=== PATIENT | female | born 1985 | race Two or more races ===

== ENCOUNTER 2017-05-14 11:00 | Inpatient (IN) | payer MEDICAID ==
[~2017-05-14] VITALS: Ht 162.6 cm; Wt 110.0 kg
--- NOTE | ~2017-05-14 | OR ---
PATIENT'S NAME: [facility] AGE: 32 Y [address] 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 PROCEDURES: 1. Anterior approach for anterior lumbar arthrodesis. 2. Anterior diskectomy. 3. Anterior removal of prior posteriorly placed Interbody Spacer. 4. Placement of PEEK interbody cage, L5-S1. 5. Anterior instrumentation, L5-S1. 6. Intraoperative fluoroscopy, physician interpretation of film. 7. Placement of Cadaveric allograft. 8. Utilization of bone morphogenetic protein utilizing the small sample size for promotion of arthrodesis. CO-SURGEON: Dr. Fabien Levy. Please see Dr. Levy's dictation for the approach and closure. I assisted him on performing suction and retraction during closure. Dr. Levy assisted during my portion of the procedure with suction and retraction during the arthrodesis. INDICATION: This is a very pleasant woman of prior transforaminal lumbar interbody fusion few years ago. She has done fairly well and then re-presented with worsening back pain with fractured screws that we will replace with the posterior revision. I was unable at that time to remove the prior cage and revise the attempted arthrodesis with interbody space and decision was made for return to OR for anterior lumbar interbody fusion as staged procedure. We discussed the risks, benefits, and alternatives of the surgery included but not limited to MT, DVT, PE, pneumonia, , loss of bowel or bladder, sexual function, pseudoarthrosis, CSF leak, neurological injury, paralysis of lower extremity, specific risks with bone morphogenetic protein use including cancer, bony hypertrophic ossification, as well as others. I believe, she has also family was present in the preoperative suite, understand the risk, PATIENT'S NAME: [facility] AGE: 32 Y [address] ROOM: [id number] [place], [place] [address] LOCATION: [facility] [place] DATE: 05/16/2017 OR/Procedure Report DISCHARGE DATE: 05/18/2017 FAMILY PHYSICIAN: Swapnil Sweeney MD ATTENDING PHYSICIAN: ANDREA NOLEN, and alternatives. I fully answered any of there questions and believe that they understand the procedure. DESCRIPTION OF PROCEDURE: After getting informed consent, the patient was taken to operating theater placed under general endotracheal anesthesia in supine position with a probe placed underneath her back for positioning. Time- out was utilized to ascertain the correct site and side of surgery, as well as other pertinent patient's surgical information. Counts were obtained beginning and at the end of the case with no change between the two. Antibiotics were given within 1 hour of incision. The fluoroscope was brought into the field. Initial radiography was obtained and the approach was performed by Dr. Levy. During the retroperitoneal approach, I assisted in retraction and suction, while Dr. Levy performed an excellent approach and exposure of the anterior spinal column at lumbar 5 and sacral 1. Once this portion of the procedure was completed, I turned to the neurosurgical portion of the case, at which time, Dr. Levy converted to assisting me in this portion of the case with suction and retraction during the procedure. I incised the anterior longitudnal ligament L5-S1. There was soft disk material and ligaments still present. This was resected and then some abnormal non-cancelous appearing bone and cartilaginous appearing bone was present between the areas. This was drilled down and curetted back and resecting back discerning the anterior interbody graft which was subsided a bit into lumbar 5 vertebral body. I had to drill off and remove some of the inferior portion of the L5 vertebral body. The angle of this approach was caudal to cephalad in a fairly high angle. Drilling this back, I was able to get back to the graft sheaths which was embedded in poorly structured bone and fairly loose, although I did have to drill around it in able to adequately remove as much of it as was possible. Once I was able to effectively get around this, I was able to use the curette and then large pituitary rongeur and removed it from the interbody space. At this point the rest of the pseudo-arthritic appearing poor quality tissue and bone was drilled back posteriorly leaving a small posterior wall of the sacrum present. Scar tissue was encountered at the posterior aspect of the disk space. This was all drilled back to bone, resecting a portion of the superior aspect of sacral 1. Once this was completed it appeared that there would be good and acceptable bone for future arthrodesis. There was no sign of need of decompression as the posterior approach had adequately decompressed everything and there was significant scar tissue anterior to the thecal sac/behind the prior implants and this was resected as much as possible without a chance to completely resect secondary to concern for CSF leak due to the scar tissue. This case was substantially more difficult and otherwise the undertaking because of the tenacity of the tissues that had to be resected as well as the patient's anatomy making the PATIENT'S NAME: [facility] SUMMERS [facility] AGE: 32 Y [address] ROOM: [place] [address] LOCATION: [facility] [place] DATE: 05/16/2017 OR/Procedure Report DISCHARGE DATE: 05/18/2017 FAMILY PHYSICIAN: Swapnil Sweeney MD ATTENDING PHYSICIAN: ANDREA NOLEN angle of approach more difficult than usual leading to a longer and more tedious procedure. It was very helpful to have Dr. Levy's assistance during this part. Once this was completed and everything was drilled back to an appropriate appearing bone for arthrodesis. A small footprint but large size implant template was brought into the field and tapped into place. Bone was trimmed back appropriately fit this laterally as well as that depth were needed. Once it was cleared then this [employer] implants piece would be appropriate. The 17-mm tall PEEK cage and the anterior plating system was brought into the field. This was packed with cadaveric allograft as well as BMP soaked sponge material. The impregnated sponge was placed in the 3 holes and covered with bone chips. This was when very cautiously impacted into the space with no sign of complication with what appeared to be acceptable implantation, although due to the patient's body habitus it was a bit difficult to fully visualize the anterior portion of the sacrum especially with prior lumbar screws. Once this was all completed, and this was tapped into place the anterior instrumentation was fashioned. The anterior plate was installed utilizing 25 mm screws in the sacrum and 20 mm into L5 and then screws were implanted and securely screwed into the anterior plate. There was no sign of complication at this point. Once this was completed and the other visible area of the bony defects were packed with demineralized bone matrix covering the area as wisely as possible. The system did appear to be under compression after the implanting of the PEEK interbody cage. Once this was all completed, pristine hemostasis was obtained and attention was turned to closure. Please see Dr. Levy's description for the closure. COMPLICATIONS: None. ESTIMATED BLOOD LOSS: Charted. SPECIMENS: Cage explant was removed from the patient. DISPOSITION: Extubated and taken to the Post Anesthesia Care Unit. Moving all 4 extremities with no sign of surgical complication or neurological injury. ANDREA NOLEN MD JRA/shannonl PATIENT'S NAME: [facility] SUMMERS [facility] AGE: 32 Y [address] ROOM: [place] [address] LOCATION: [facility] [place] DATE: 05/16/2017 OR/Procedure Report DISCHARGE DATE: 05/18/2017 FAMILY PHYSICIAN: Swapnil Sweeney MD ATTENDING PHYSICIAN: ANDREA NOLEN /[id number] d: 05/17/17 1829 t: 05/23/17 0920, OPERATIVE SUMMARY
--- NOTE | ~2017-05-14 | OR ---
PATIENT'S NAME: [facility] AGE: 32 Y [address] ROOM: [place] [address] LOCATION: [facility] ADMIT DATE: 05/16/2017 OR/Procedure Report DISCHARGE DATE: FAMILY PHYSICIAN: Swapnil Sweeney MD ATTENDING PHYSICIAN: ANDREA NOLEN SURGEON: Fabien Stephens MD SCAFFOLD SETTER: DATE OF PROCEDURE: 05/16/2017 PREOPERATIVE DIAGNOSIS: Pseudoarthrosis at L5-S1. POSTOPERATIVE DIAGNOSIS: Pseudoarthrosis at L5-S1. PROCEDURE PERFORMED: Retroperitoneal exposure for anterior lumbar interbody fusion. CO-SURGEON: Andrea Nolen MD. FINDINGS: The patient's obesity made exposure more difficult. There was minimal blood loss. ESTIMATED BLOOD LOSS: 100 mL. COMPLICATIONS: None. INDICATIONS: The patient is a 32-year-old female, who had several back surgeries previously. She had pseudoarthrosis, and was in need of anterior lumbar interbody fusion. I was asked by Dr. Nolen to perform a retroperitoneal exposure. Risks, benefits, and alternatives of the retroperitoneal exposure were discussed with the patient which included, but were not limited to bleeding, infection, neuro and vascular injury, ureteral injury, as well as bowel injury. She understood the risks, and elected to proceed. PROCEDURE IN DETAIL: The patient was taken into the Operating Room. She was supine. She was given IV sedation and subsequently intubated. Her abdomen was prepped with DuraPrep and sterilely draped. A transverse incision was created overlying the L5-S1 disk space, and carried into the subcutaneous tissues. She was obese. We dissected down to the anterior rectus sheath, which was incised transversely. The linea alba was then released. The rectus muscle was then swept laterally below the semilunar line over to the pelvis and into the retroperitoneum. We then were able to gently mobilize the retroperitoneum medially, mobilizing the bowel as well as ureter over to the right. Her obesity made visualization more difficult. In order to gain further mobilization, we did divide the round ligament. A Bookwalter PATIENT'S NAME: [facility] AGE: 32 Y [address] ROOM: [address] [address] LOCATION: [facility] ADMIT DATE: 05/16/2017 OR/Procedure Report DISCHARGE DATE: FAMILY PHYSICIAN: Swapnil Sweeney MD ATTENDING PHYSICIAN: ANDREA NOLEN retractor was then placed to hold our position. The L5-S1 disk space was cleaned of the thin areolar tissue by blunt dissection as well with electrocautery. Dr. Nolen was present and helped with visualization and suctioning during this portion. I then provided retraction and visualization throughout the diskectomy and anterior lumbar interbody fusion. Once Dr. Nolen had completed this, the retractors were removed. The retroperitoneal space was inspected and appeared hemostatic. We allowed the abdominal contents to fall back into their position. WOUND CLOSURE: The rectus muscle was reapproximated in the midline using 3-0 Vicryl suture. The fascia was closed with 0 PDS suture. Skin was closed with 4-0 Monocryl suture. Steri-Strips and sterile dressings were placed. POSTOPERATIVE CONDITION: The patient was extubated and sent to Recovery in good condition. COUNT RESULTS: Sponge, needle, and instrument counts were reported as correct. FABIEN STEPHENS MD BJO/modl /[id number] d: 05/16/175 t: 05/30/1709, OPERATIVE SUMMARY
--- NOTE | ~2017-05-14 | DS ---
PATIENT'S NAME: HUGH SUMMERS [facility] AGE: 32 Y [address] ROOM: [address] [address] LOCATION: [facility] [place] ADMIT DATE: 05/16/2017 Discharge Summary DISCHARGE DATE: 05/18/2017 FAMILY PHYSICIAN: Swapnil Sweeney MD ATTENDING PHYSICIAN: Andrea Rodriguez REASON FOR ADMIT: Pseudoarthrosis. PROCEDURE: Anterior lumbar interbody fusion. HOSPITAL COURSE: The patient tolerated the procedure very well. She underwent the procedure and then was ambulating that evening. She had her pain controlled. She was ambulating, defecating, urinating per normal with no sign of neurological deficits and by postoperative day 2 was requesting discharge. MEDICATIONS: Medication reconciliation form was reconciled at the time of discharge. RECOMMENDATIONS: The patient is to call with any neurological changes or signs of infection. She will follow up with me in 2 weeks in [place]. MD KEIKO MARIE/modl /[id number] d: 05/23/175 t: 06/23/17 1253, DISCHARGE SUMMARY
[2017-05-14] MEDS ORDERED: OXYCODONE-ACET1 EACH PO (17:18)
[2017-05-14] MEDS ORDERED: TIZANIDINE HCL4 M1 PO (17:20)
[2017-05-14] MEDS ORDERED: OMEPRAZOLE20 M1 PO (17:21)
[2017-05-16 06:13] LABS: INR - (THERAPEUTIC) 0.98 (0.92-1.07); PROTIME 10.3 SECONDS (9.8-11.4)
[2017-05-18] MEDS ORDERED: SURFAK240 MG PO (10:49)
== END 2017-05-18 15:40 | disposition disaster alternative care site (69) | DRG 460 ==
LOC: G3N 05-16 05:31 → GMSU 05-17 16:30
PROVIDERS: ADMIT Neurological Surgery
PROC: 0SP Lower Joints, Removal (ICD-10-PCS; principal; 2017-05-16)
PROC: 0SB40ZZ Excision of Lumbosacral Disc, Open Approach (ICD-10-PCS; principal; 2017-05-16)
PROC: 4A11X4G Monitoring of Peripheral Nervous Electrical Activity, Intraoperative, External Approach (ICD-10-PCS; principal; 2017-05-16)
PROC: 0SG30A0 Fusion of Lumbosacral Joint with Interbody Fusion Device, Anterior Approach, Anterior Column, Open Approach (ICD-10-PCS; principal; 2017-05-16)
DX: M96.0 Pseudarthrosis after fusion or arthrodesis (principal); Z68.41 Body mass index [BMI] 40.0-44.9, adult; F32.9 Major depressive disorder, single episode, unspecified; F41.1 Generalized anxiety disorder; G47.09 Other insomnia; E66.8 Other obesity
CPT/HCPCS: C1713; J0690; J1885; J2001; J2405; J2550; J2795; J3010; J3370; J3480; J7030